=== PATIENT | female | born 2005 | race Caucasian/White ===

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

== ENCOUNTER 2024-09-13 17:38 | Emergency (ER) | payer BC ==
[2024-09-13 17:53] VITALS: TEMP 97.1
--- NOTE | 2024-09-13 18:19 | ERPHSYRPT ---
- History of Present Illness Time Seen by Provider: 09/13/24 18:16 Historian: patient Exam Limitations: no limitations Patient Subjective Stated Complaint: Pt states "I was driving home and started to feel sick and projectile vomited 3 times and I have not vomited like that in a long time and my mom said I should just come to the ed." Triage Nursing Assessment: Pt presented alert and oriented X 3, skin pwd. pt ambulates with an upright steady gait, able to speak in clear full sentences pt resting comfortably on the bed. Physician History: 19-year-old female presents to our ED for evaluation of epigastric pain and v omiting. Patient vomited 3 times. Patient states she feels unwell. She describes epigastric pain that is constant. No trauma no fever. Patient declined pain medication. Symptoms are mild to moderate in intensity. No specific worsening or improving factors. Patient otherwise feels well. She voices no other complaints or concerns at this time. Portions of this note were created with voice recognition technology. There may be grammatical, spelling, punctuation or sound alike errors Timing/Duration: today Activities at Onset: none Quality: aching Abdominal Pain Onset Location: epigastric Pain Radiation: no radiation Severity of Pain-Max: moderate Severity of Pain-Current: mild Modifying Factors: Improves With: nothing Associated Symptoms: nausea, vomiting Previous symptoms: no prior history Allergies/Adverse Reactions: Penicillins Allergy (Verified 09/05/23 19:58) Home Medications: Estradiol Cypionate [Depo-Estradiol] 5 mg IM UD 09/13/24 [History] Upadacitinib [Rinvoq ER] 15 mg PO DAILY 09/13/24 [History] Hx Tetanus, Diphtheria Vaccination/Date Given: Yes Hx Influenza Vaccination/Date Given: No Hx Pneumococcal Vaccination/Date Given: No Immunizations Up to Date: No Travel Risk - International Travel Have you traveled outside of the country in past 3 weeks: No - Emerging Infectious Disease Are you exhibiting symptoms associated with any current EIDs: Yes Symptoms: Vomitting - Review of Systems Constitutional: No Symptoms, No Fever, No Chills Eyes: No Symptoms Ears, Nose, & Throat: No Symptoms Respiratory: No Symptoms, No Cough, No Dyspnea Cardiac: No Symptoms, No Chest Pain, No Edema, No Syncope Abdominal/Gastrointestinal: No Symptoms, No Abdominal Pain, No Nausea, No Vomiting, No Diarrhea Genitourinary Symptoms: No Symptoms, No Dysuria Musculoskeletal: No Symptoms, No Back Pain, No Neck Pain Skin: No Symptoms, No Rash Neurological: No Symptoms, No Dizziness, No Focal Weakness, No Sensory Changes Psychological: No Symptoms Endocrine: No Symptoms Hematologic/Lymphatic: No Symptoms Immunological/Allergic: No Symptoms All Other Systems: Reviewed and Negative - Past Medical History Pertinent Past Medical History: Yes Neurological History: No Pertinent History ENT History: No Pertinent History Cardiac History: No Pertinent History Respiratory History: No Pertinent History Endocrine Medical History: No Pertinent History Musculoskeletal History: No Pertinent History GI Medical History: Other History: No Pertinent History Psycho-Social History: Bipolar, Depression Female Reproductive Disorders: Other Other Medical History: PCOS. overactive bladder - Past Surgical History Past Surgical History: No - Female History Hx Last Menstrual Period: depo Hx Now: No - Social History Smoking Status: Never smoker Exposure to second hand smoke: Yes Drug Use: none - Social Determinants of Health Will the patient participate in the screening: Yes Do you worry about a steady place to live?: No Do you have any problems with any of the following?: No known problems In the past 12 months,have you had to go without utilities?: No Transportation Issues: No Has anyone in your support network made you feel unsafe?: No Have you or anyone in your house had to go w/o enough food: No - Nursing Vital Signs Nursing Vital Signs: Initial Vital Signs Temperature 97.1 F 09/13/24 17:46 Pulse Rate 129 H 09/13/24 17:46 Respiratory Rate 18 09/13/24 17:46 Blood Pressure 141/102 09/13/24 17:46 O2 Sat by Pulse Oximetry 98 09/13/24 17:46 Pain Scale Pain Intensity 5 - Physical Exam General Appearance: no apparent distress, alert Eye Exam: PERRL/EOMI, eyes nml inspection Ears, Nose, Throat Exam: normal ENT inspection, moist mucous membranes Neck Exam: normal inspection, non-tender, supple, full range of motion Respiratory Exam: normal breath sounds, lungs clear, airway intact, No respiratory distress Cardiovascular Exam: regular rate/rhythm, normal heart sounds Gastrointestinal/Abdomen Exam: soft, No tenderness, No mass Back Exam: normal inspection, normal range of motion, No CVA tenderness, No vertebral tenderness Extremity Exam: normal inspection, normal range of motion, pelvis stable Neurologic Exam: alert, oriented x 3, cooperative, normal mood/affect, sensation nml, No motor deficits Skin Exam: normal color, warm, dry Lymphatic Exam: No adenopathy SpO2 Interpretation: normal SpO2: 98 O2 Delivery: Room Air - Course Nursing assessment & vital signs reviewed: Yes - CT Exams Abdomen/Pelvis CT Interpretation: Tele-radiologist Report (Normal abdomen and pelvis) Ordered Tests: Active Orders 24 hr Category Date Time Status IV Insertion STAT Care 09/13/24 18:11 Active ABDOMEN AND PELVIS W/0 CONTRAS [CT] Stat Exams 09/13/24 18:12 Taken BLOOD CULTURE Stat Lab 09/13/24 20:05 Ordered CBC W DIFF Stat Lab 09/13/24 18:28 Completed CMP Stat Lab 09/13/24 18:28 Completed CULTURE,URINE Stat Lab 09/13/24 18:28 Received HCG QUALITATIVE, URINE Stat Lab 09/13/24 18:28 Completed LIPASE Stat Lab 09/13/24 18:28 Completed UA W/RFX UR CULTURE Stat Lab 09/13/24 18:28 Completed Medication Summary Generic Name Dose Route Start Last Admin Trade Name Freq PRN Reason Stop Dose Admin Levofloxacin/Dextrose 500 mg in 100 mls @ 100 mls/hr 09/13/24 20:07 Levofloxacin 500mg/100ml D5w IV 09/13/24 21:06 STAT STA Discontinued Medications Generic Name Dose Route Start Last Admin Trade Name Freq PRN Reason Stop Dose Admin Sodium Chloride 1,000 mls @ 999 mls/hr 09/13/24 18:11 09/13/24 18:46 Sodium Chloride 0.9% 1000 Ml IV 09/13/24 19:11 999 mls/hr .Q1H1M STA Administration Sodium Chloride Confirm 09/13/24 18:36 Sodium Chloride 0.9% 1000 Ml Administered 09/13/24 18:37 Dose 1,000 mls @ ud .ROUTE .STK-MED ONE Ondansetron HCl 4 mg 09/13/24 18:11 09/13/24 18:45 Ondansetron Hcl 4 Mg/2 Ml Vial IV 09/13/24 18:12 4 mg STAT ONE Administration Ondansetron HCl Confirm 09/13/24 18:36 Ondansetron Hcl 4 Mg/2 Ml Vial Administered 09/13/24 18:37 Dose 4 mg .ROUTE .STK-MED ONE Lab/Rad Data: Laboratory Result Diagrams 09/13/24 18:28 09/13/24 18:28 Laboratory Results 09/13/24 09/13/24 09/13/24 Range/Units 18:28 18:28 18:28 WBC (3.98-10.04) x10^3/uL RBC (3.93-5.22) x10^6/uL Hgb (11.2-15.7) g/dL Hct (34.1-44.9) % MCV (79.4-94.8) fL MCH (25.6-32.2) pg MCHC (32.2-35.5) g/dL RDW (11.7-14.4) % Plt Count (182-369) x10^3/uL MPV (9.4-12.3) fL Gran % (34.0-71.1) % Immature Gran % (Auto) (0.001-0.429) % Nucleat RBC Rel Count (0.00-0.2) % Eos # (Auto) (0.04-0.36) x10^3/uL Immature Gran # (Auto) (0.001-0.031) x10^3u/L Absolute Lymphs (auto) (1.18-3.74) x10^3/uL Absolute Monos (auto) (0.24-0.86) x10^3/uL Absolute Nucleated RBC (0.00-0.012) x10^3u/L Lymphocytes % (19.3-51.7) % Monocytes % (4.7-12.5) % Eosinophils % (0.7-5.8) % Basophils % (0.1-1.2) % Absolute Granulocytes (1.56-6.13) x10^3/uL Basophils # (0.01-0.08) x10^3/uL Sodium 142 (135-145) mmol/L Potassium 4.2 (3.5-5.1) mmol/L Chloride 104 (98-107) mmol/L Carbon Dioxide 21 L (22-30) mmol/L Anion Gap 21.2 H (5-15) MEQ/L BUN 12 (7-17) mg/dL Creatinine 0.75 (0.52-1.04) mg/dL Estimated GFR 116.8 ML/MIN Glucose 94 (74-106) mg/dL Calcium 9.1 (8.4-10.2) mg/dL Total Bilirubin 0.80 (0.2-1.3) mg/dL AST 35 (14-36) U/L ALT 34 (0-35) U/L Alkaline Phosphatase 107 (38-126) U/L Serum Total Protein 8.1 (6.3-8.2) g/dL Albumin 5.1 H (3.5-5.0) g/dL Lipase 29 (23-300) U/L Urine Color Yellow (Yellow) Urine Appearance Cloudy A (Clear) Urine pH 5.0 (4.6-8.0) Ur Specific [place] >=1.030 A (1.005-1.030) Urine Protein 30 (Negative) Urine Glucose (UA) Negative (Negative) mg/dL Urine Ketones 15 A (Negative) Urine Blood Negative (Negative) Urine Nitrite Negative (Negative) Urine Bilirubin Negative (Negative) Urine Urobilinogen 0.2 (0.2) mg/dL Ur Leukocyte Esterase Negative (Negative) U Hyaline Cast (Auto) 3-5 A (0-2) /LPF Urine Microscopic RBC 3-5 (0-5) /HPF Urine Microscopic WBC 11-20 A (0-5) /HPF Ur Epithelial Cells Moderate A (None Seen) /HPF Urine Bacteria Many A (None Seen) /HPF Urine Culture Reflexed YES (NO) Urine HCG, Qual NEGATIVE (NEGATIVE) Influenza Type A Ag (NEGATIVE) Influenza Type B Ag (NEGATIVE) RSV (PCR) (NEGATIVE) SARS-CoV-2 (PCR) (NEGATIVE) 09/13/24 09/13/24 Range/Units 18:28 18:25 WBC 21.4 H (3.98-10.04) x10^3/uL RBC 5.32 H (3.93-5.22) x10^6/uL Hgb 15.2 (11.2-15.7) g/dL Hct 45.0 H (34.1-44.9) % MCV 84.6 (79.4-94.8) fL MCH 28.6 (25.6-32.2) pg MCHC 33.8 (32.2-35.5) g/dL RDW 13.6 (11.7-14.4) % Plt Count 444 H (182-369) x10^3/uL MPV 8.6 L (9.4-12.3) fL Gran % 86.7 H (34.0-71.1) % Immature Gran % (Auto) 0.6 H (0.001-0.429) % Nucleat RBC Rel Count 0.0 (0.00-0.2) % Eos # (Auto) 0.11 (0.04-0.36) x10^3/uL Immature Gran # (Auto) 0.12 H (0.001-0.031) x10^3u/L Absolute Lymphs (auto) 1.60 (1.18-3.74) x10^3/uL Absolute Monos (auto) 0.96 H (0.24-0.86) x10^3/uL Absolute Nucleated RBC 0.00 (0.00-0.012) x10^3u/L Lymphocytes % 7.5 L (19.3-51.7) % Monocytes % 4.5 L (4.7-12.5) % Eosinophils % 0.5 L (0.7-5.8) % Basophils % 0.2 (0.1-1.2) % Absolute Granulocytes 18.57 H (1.56-6.13) x10^3/uL Basophils # 0.05 (0.01-0.08) x10^3/uL Sodium (135-145) mmol/L Potassium (3.5-5.1) mmol/L Chloride (98-107) mmol/L Carbon Dioxide (22-30) mmol/L Anion Gap (5-15) MEQ/L BUN (7-17) mg/dL Creatinine (0.52-1.04) mg/dL Estimated GFR ML/MIN Glucose (74-106) mg/dL Calcium (8.4-10.2) mg/dL Total Bilirubin (0.2-1.3) mg/dL AST (14-36) U/L ALT (0-35) U/L Alkaline Phosphatase (38-126) U/L Serum Total Protein (6.3-8.2) g/dL Albumin (3.5-5.0) g/dL Lipase (23-300) U/L Urine Color (Yellow) Urine Appearance (Clear) Urine pH (4.6-8.0) Ur Specific [place] (1.005-1.030) Urine Protein (Negative) Urine Glucose (UA) (Negative) mg/dL Urine Ketones (Negative) Urine Blood (Negative) Urine Nitrite (Negative) Urine Bilirubin (Negative) Urine Urobilinogen (0.2) mg/dL Ur Leukocyte Esterase (Negative) U Hyaline Cast (Auto) (0-2) /LPF Urine Microscopic RBC (0-5) /HPF Urine Microscopic WBC (0-5) /HPF Ur Epithelial Cells (None Seen) /HPF Urine Bacteria (None Seen) /HPF Urine Culture Reflexed (NO) Urine HCG, Qual (NEGATIVE) Influenza Type A Ag NEGATIVE (NEGATIVE) Influenza Type B Ag NEGATIVE (NEGATIVE) RSV (PCR) NEGATIVE (NEGATIVE) SARS-CoV-2 (PCR) NEGATIVE (NEGATIVE) - Progress Progress: improved Progress Note: 19-year-old female presents to our ED for evaluation of nausea vomiting and abdominal pain. Workup reveals a leukocytosis of 21,000 and a thrombocytosis of 444. Patient does have a urinary tract infection however this does not explain patient's leukocytosis. Patient states she had blood work done in June and she had a leukocytosis of 11. Patient is afebrile. CT abdomen pelvis negative for acute intra-abdominal pathology. Patient received a dose of Levaquin in our ED. A prescription for Levaquin forwarded to patient's pharmacy. Blood cultures obtained. Patient understands the importance of follow-up. Patient does understand that this leukocytosis is abnormal and needs close follow-up. Patient will follow-up with her primary care doctor within 48 hours for reevaluation. She voices no other complaints or concerns at this time. Patient's abdominal pain has resolved. Patient tolerating p.o. Nausea vomiting resolved as well. Portions of this note were created with voice recognition technology. There may be grammatical, spelling, punctuation or sound alike errors Complexity of problem addressed is moderate acute complicated. No critical care time. Complexity of data reviewed and analyzed is moderate. Test ordered test reviewed results analyzed and correlated clinically with history and physical exam. Risk of complication and or risk of morbidity/mortality of patient management is moderate. A prescription for Levaquin forwarded to patient's pharmacy. Vital stable. Time spent to discharge patient is approximately 10 minutes. Plan of care established for shared decision making. No social determinants of health present to impede follow-up. Portions of this note were created with voice recognition technology. There may be grammatical, spelling, punctuation or sound alike errors 09/13/24 20:17 Counseled pt/family regarding: lab results, diagnosis, need for follow-up, rad results - Departure Departure Disposition: Home Clinical Impression: Nausea and vomiting, Abdominal pain, Urinary tract infection, Leukocytosis, Thrombocytosis, Dehydration Condition: Stable Critical Care Time: No Referrals: JOLANTA KILGORE MD [Primary Care Provider] - Follow up/PCP as directed Additional Instructions: Discharge/Care Plan STEPHANIE GARCIA was seen on 09/13/24 in the Emergency Room. The patient was counseled regarding Diagnosis,Lab results, Imaging studies, need for follow up and when to return to the Emergency Room. Prescriptions given: Discharge Note I have spoken with the patient and/or caregivers. I have explained the patient's condition, diagnosis and treatment plan based on the information available to me at this time. I have answered the patient's and/or caregiver's questions and addressed any concerns. The patient and/or caregivers have as good understanding of the patient's diagnosis, condition and treatment plan as can be expected at this point. The vital signs have been stable. The patient's condition is stable and appropriate for discharge from the emergency department. The patient will pursue further outpatient evaluation with the primary care physician or other designated or consulting physician as outlined in the discharge instructions. The patient and/or caregivers are agreeable to this plan of care and follow-up instructions have been explained in detail. The patient and/or caregivers have received these instruction. The patient/and or caregivers are aware that any significant change in condition or worsening of symptoms should prompt an immediate return to this or the closest emergency department or call 911.
[2024-09-13 18:33] LABS: Absolute Neutrophil Ct (ANC) 18.57 x10^3/uL (1.56-6.13); BASOPHIL % 0.2 % (0.1-1.2); Basophil (Absolute #) 0.05 x10^3/uL (0.01-0.08); Eosinophil % 0.5 % (0.7-5.8); Eosinophil (Absolute #) 0.11 x10^3/uL (0.04-0.36); Hemoglobin 15.2 g/dL (11.2-15.7); IMMATURE GRAN # 0.12 x10^3u/L (0.001-0.031); IMMATURE GRAN % 0.6 % (0.001-0.429); Lymphocytes % 7.5 % (19.3-51.7); Mean Cell Volume 84.6 fL (79.4-94.8); Mean Corpuscular Hemoglobin 28.6 pg (25.6-32.2); Mean Corpuscular Hgb Concent. 33.8 g/dL (32.2-35.5); Mean Platelet Volume 8.6 fL (9.4-12.3); Monocyte (Absolute #) 0.96 x10^3/uL (0.24-0.86); Monocytes % 4.5 % (4.7-12.5); Neutrophil % 86.7 % (34.0-71.1); Platelet Count 444 x10^3/uL (182-369); Red Blood Count 5.32 x10^6/uL (3.93-5.22); Red Cell Distribution Width 13.6 % (11.7-14.4); White Blood Count 21.4 x10^3/uL (3.98-10.04)
[2024-09-13] MEDS ORDERED: Sodium Chloride 0.9% 1000 ML 1,000 ML ONE (18:36)
[2024-09-13] MEDS ORDERED: Zofran 4 MG/2 ML VIAL ONE (18:36)
[2024-09-13 18:38] LABS: HCG URINE TEST NEGATIVE (NEGATIVE)
[2024-09-13 18:40] LABS: Appearance Cloudy (Clear); Bacteria Many /HPF (None Seen); Bilirubin Negative (Negative); Blood Negative (Negative); Epithelial Cells Moderate /HPF (None Seen); Glucose, Urine Negative (Negative); Ketones 15 (Negative); Leukocyte Esterase Negative (Negative); Nitrite Negative (Negative); Protein,Urine Dip 30 (Negative); Specific Gravity >=1.030 (1.005-1.030); Urobilinogen 0.2 mg/dL (0.2)
[2024-09-13 18:45] LABS: ALBUMIN 5.1 g/dL (3.5-5.0); ANION GAP 21.2 MEQ/L (5-15); BILIRUBIN,TOTAL 0.8 mg/dL (0.2-1.3); Calcium 9.1 mg/dL (8.4-10.2); Creatinine 1 0.75 mg/dL (0.52-1.04); EST GLOMERULAR FILTRATION RATE 116.8 ML/MIN; Potassium 4.2 mmol/L (3.5-5.1); Total Protein 8.1 g/dL (6.3-8.2)
[2024-09-13] MEDS: Zofran 4 MG/2 ML VIAL IV ONE (18:45)
[2024-09-13] MEDS: Sodium Chloride 0.9% 1000 ML 1,000 ML IV STA (18:46)
[2024-09-13 19:10] LABS: INFLUENZA A NEGATIVE (NEGATIVE); INFLUENZA B NEGATIVE (NEGATIVE); RESPIRATORY SYNCTIAL VIRUS NEGATIVE (NEGATIVE); SARS-CoV-2 Xpert Express NEGATIVE (NEGATIVE)
[2024-09-13] MEDS ORDERED: Levofloxacin 500MG/100ML D5W 500 MG/100 ML BAG IV ONE (20:15)
[2024-09-13] MEDS: Levofloxacin 500MG/100ML D5W 500 MG/100 ML BAG IV STA (20:18)
[2024-09-13] MEDS ORDERED: TYLENOL 325 MG ONE (20:21)
[2024-09-13] MEDS: TYLENOL 325 MG PO ONE (20:22)
[2024-09-13 20:29] VITALS: PULSE 102; RESP 20
[2024-09-13 21:05] VITALS: BP 135/90; O2SAT 97
--- NOTE | 2024-09-14 09:06 | XRAY ---
Indication: Pain. Multiple contiguous axial images obtained through the abdomen and pelvis without contrast. Comparison: None Lung bases clear. Heart not enlarged. Noncontrasted stomach and bowel loops appear nonobstructed with normal appendix. No free fluid/air. Remaining liver, gallbladder, pancreas, spleen, adrenal glands, kidneys, ureters, bladder, uterus, and aorta are unremarkable for noncontrast exam. Osseous structures intact. No ventral or inguinal hernias. Impression: Negative CT abdomen/pelvis without contrast exam.
== END 2024-09-13 21:31 | disposition home or self-care (01) ==
LOC: ED 17:38
DX: N39.0 Urinary tract infection, site not specified (principal); R11.2 Nausea with vomiting, unspecified; R10.13 Epigastric pain; D72.829 Elevated white blood cell count, unspecified; D75.839 Thrombocytosis, unspecified; E86.0 Dehydration; Z79.899 Other long term (current) drug therapy
CPT/HCPCS: 0241U; 36415; 74176; 80053; 81001; 81025; 83690; 85025; 87040; 87086; 96361; 96365; 96375; 99284; 96374; J1956; J2405; A9270-GY